=== PATIENT | female | born 1975 | race Native Hawaiian/Other Pacific Islander ===

== ENCOUNTER 2020-11-23 07:07 | Emergency (ER) | payer BC ==
[~2020-11-23] VITALS: Ht 167.6 cm; Wt 55.3 kg
[2020-11-23 07:15] VITALS: TEMP 96.5
[2020-11-23 08:28] VITALS: BP 141/97
== END 2020-11-23 08:28 | disposition home or self-care (01) ==
LOC: ED 07:07
DX: R51.9 Headache, unspecified (principal)
CPT/HCPCS: 94664; 96372; 99283; J0696; J1200; J1885